=== PATIENT | female | born 1995 | race Caucasian/White ===

== ENCOUNTER 2016-11-06 12:46 | Emergency (ER) | payer OTHER ==
--- NOTE | 2016-11-06 14:15 | UC ---
Throat Pain/Nasal Rhett HPI - HPI Summary HPI Summary: Nasal congestion, PND, cough starting about 10 days ago. Has had fluctuating laryngitis from day to day starting 6 days ago, still not feeling much better, Denies fever, rash, or wheezing/shortness of breath. - History of Current Complaint Chief Complaint: UCGeneralIllness Stated Complaint: SORE THROAT Time Seen by Provider: 11/06/16 13:52 Hx Obtained From: Patient Hx Last Menstrual Period: 10/11/16 ?: No Onset/Duration: Gradual Onset, Lasting Weeks Severity: Moderate Cough: Productive Associated Signs & Symptoms: Positive: Nasal Discharge. Negative: Wheezing, Fever - Allergies/Home Medications Allergies/Adverse Reactions: Allergies Allergy/AdvReac Type Severity Reaction Status Date / Time No Known Allergies Allergy Verified 11/06/16 13:41 Home Medications: Home Medications Amphetamine MIXED SALT TAB* [Adderall TAB*] 20 mg PO DAILY 11/06/16 [History Confirmed 11/06/16] Phenylephrine-Aspirin [[place] Plus Sinus F 7.8-325 mg] 1 tab PO Q6H PRN [History Confirmed 11/06/16] PMH/Surg Hx/FS Hx/Imm Hx - Surgical History Surgical History: Yes Surgery Procedure, Year, and Place: WISDOM TEETH EXTRACATIONS - Family History Known Family History: Positive: None Negative: Blood Disorder - Social History Occupation: Student Alcohol Use: Occasionally Substance Use Type: None Smoking Status (MU): Never Smoked Tobacco Review of Systems Constitutional: Negative Skin: Negative Eyes: Negative ENT: Sore Throat, Nasal Discharge, Other - laryngitis Respiratory: Cough Cardiovascular: Negative Gastrointestinal: Negative Genitourinary: Negative Motor: Negative Neurovascular: Negative Musculoskeletal: Negative Neurological: Negative Psychological: Negative All Other Systems Reviewed And Are Negative: Yes Physical Exam Triage Information Reviewed: Yes Appearance: Well-Appearing, No Pain Distress, Well-Nourished Vital Signs: Initial Vital Signs Temp 98.4 F 11/06/16 13:43 Pulse 93 11/06/16 13:43 Resp 16 11/06/16 13:43 BP 132/86 11/06/16 13:43 Pulse Ox 99 11/06/16 13:43 Vital Signs Reviewed: Yes Eye Exam: Normal Eyes: Positive: Conjunctiva Clear ENT: Positive: Hearing grossly normal, Pharynx normal, Nasal congestion, TMs normal, Muffled/hoarse voice - hoarse Dental Exam: Normal Neck exam: Normal Neck: Positive: Supple, Nontender, No Lymphadenopathy Respiratory Exam: Normal Respiratory: Positive: Chest non-tender, Lungs clear, Normal breath sounds, No respiratory distress, No accessory muscle use Cardiovascular Exam: Normal Cardiovascular: Positive: RRR, No Murmur Musculoskeletal Exam: Normal Neurological Exam: Normal Psychological Exam: Normal Skin Exam: Normal Throat Pain/Nasal Course/Dx - Differential Dx/Diagnosis Provider Diagnoses: URI. laryngitis Discharge - Discharge Plan Condition: Stable Disposition: HOME Prescriptions: predniSONE TAB* [Deltasone TAB*] 50 mg PO DAILY #2 tab Patient Education Materials: Laryngitis (ED), Upper Respiratory Infection (ED) Referrals: Non Staff,Doctor [Primary Care Provider] - Additional Instructions: Call or return if you develop increasing fever, shortness of breath, chest pain , bloody sputum, or otherwise worsen. If you have not improved at all after several days, contact your primary care physician or return here.
[2016-11-06 14:30] VITALS: BP 114/75
== END 2016-11-06 14:28 | disposition home or self-care (01) ==
LOC: UCCORT 12:46
DX: J06.9 Acute upper respiratory infection, unspecified (principal); J04.0 Acute laryngitis
CPT/HCPCS: 99212; G0463